=== PATIENT | male | born 1990 | race African-American/Black ===

== ENCOUNTER 2022-02-04 09:26 | Emergency (ER) | payer MEDICAID ==
[~2022-02-04] VITALS: Ht 162.6 cm; Wt 59.0 kg
[2022-02-04 09:41] VITALS: BP 121/76
[2022-02-04] MEDS ORDERED: IBUPROFEN 600MG TABLET PO ONE (10:00)
[2022-02-04] MEDS ORDERED: IBUP-2029 MT (10:55)
== END 2022-02-04 11:09 | disposition home or self-care (01) ==
LOC: ER 09:26
DX: M79.651 Pain in right thigh (principal); Z98.890 Other specified postprocedural states
CPT/HCPCS: 73552; 99283

== ENCOUNTER 2022-12-23 16:37 | Emergency (ER) | payer MEDICAID, OTHER ==
[~2022-12-23] VITALS: Ht 162.6 cm; Wt 59.0 kg
[~2022-12-23 16:37] MED LIST: IBUP-2029 MT
[2022-12-23] MEDS ORDERED: IBUPROFEN 600MG TABLET PO ONE (18:00)
[2022-12-23 18:06] VITALS: BP 131/98
== END 2022-12-23 18:00 | disposition home or self-care (01) ==
LOC: ER 16:37
DX: M79.651 Pain in right thigh (principal); M79.10 Myalgia, unspecified site
CPT/HCPCS: 99282

== ENCOUNTER 2023-07-16 01:31 | Emergency (ER) | payer SELFPAY ==
[~2023-07-16] VITALS: Ht 162.6 cm; Wt 57.0 kg
[2023-07-16 01:47] VITALS: O2SAT 96
[2023-07-16 02:16] LABS: CLARITY URINE CLEAR (CLEAR); COLOR URINE YELLOW (YELLOW); GLUCOSE URINE NEGATIVE (NEGATIVE); KETONES URINE NEGATIVE (NEGATIVE); LEUKOCYTE ESTERASE URINE NEGATIVE (NEGATIVE); NITRITE URINE NEGATIVE (NEGATIVE); OCCULT BLOOD URINE NEGATIVE (NEGATIVE); PROTEIN URINE NEGATIVE (NEGATIVE); SPECIFIC GRAVITY URINE 1.016 (1.005-1.030); UROBILINOGEN URINE 0.2 E.U./dL (0.2-1.0)
[2023-07-16 03:10] LABS: BASOPHILS % 0.7 % (0.0-2.0); HEMOGLOBIN. 14.2 g/dL (14.0-18.0); LYMPHOCYTES % 32.1 % (20.0-50.0); MEAN CORPUSCULAR HEMOGLOBIN 28.5 pg (28.0-32.0); MEAN CORPUSCULAR HGB CONC 33.9 g/dL (31.0-37.0); MEAN PLATELET VOLUME 8.1 fl (7.4-10.4); MONOCYTES % 7.6 % (2.0-8.0); NEUTROPHILS % 55.6 % (40.0-76.0); PLATELET 266 x1000/uL (130-400); RED CELL DISTRIBUTION WIDTH 13.8 % (11.6-14.6); WHITE BLOOD COUNT 9.2 x1000/uL (4.5-11.0)
[2023-07-16] MEDS ORDERED: ACETAMINOPHEN 325MG TABLET PO ONE (03:15)
[2023-07-16 03:22] LABS: PARTIAL THROMBOPLASTIN TIME 30.4 sec (23.4-31.0); PROTHROMBIN TIME 10.9 sec (9.6-11.0)
[2023-07-16 03:30] LABS: ALANINE AMINOTRANSFERASE 19 IU/L (10-49); ALBUMIN 4.2 g/dL (3.2-4.8); ASPARTATE AMINOTRANSFERASE 24 IU/L (<34); BILIRUBIN TOTAL 0.4 mg/dL (0.1-1.0); CALCIUM 9.3 mg/dL (8.7-10.4); CARBON DIOXIDE 29 mEq/L (21-32); CHLORIDE 106 mEq/L (98-107); CREATININE 0.9 mg/dL (0.6-1.3); GLUCOSE 113 mg/dL (70-105); POTASSIUM 3.6 mEq/L (3.5-5.1); PROTEIN TOTAL 7.3 g/dL (6.0-8.3); SODIUM 141 mEq/L (136-145); TROPONIN I HIGH SENSITIVITY 5 ng/L (3.0-53); UREA NITROGEN BLOOD 17 mg/dL (9-23)
[2023-07-16] MEDS ORDERED: IBUP-2029 MT (04:03)
[2023-07-16 04:15] VITALS: BP 118/86; PULSE 76; RESP 16; TEMP 98.2
== END 2023-07-16 04:22 | disposition home or self-care (01) ==
LOC: ER 01:31
DX: R07.89 Other chest pain (principal)
CPT/HCPCS: 36415; 71045; 80053; 81003; 84484; 85025; 93005; 99285

== ENCOUNTER 2024-03-08 22:36 | Emergency (ER) | payer SELFPAY ==
[~2024-03-08] VITALS: Ht 160 cm; Wt 59.0 kg
[2024-03-08 23:20] VITALS: O2SAT 98
[2024-03-09] MEDS ORDERED: CIPHCO EACH EAR (00:28)
[2024-03-09 00:50] VITALS: BP 105/48; PULSE 68; RESP 16; TEMP 99.1
== END 2024-03-09 00:50 | disposition home or self-care (01) ==
LOC: ER 22:36
DX: H60.91 Unspecified otitis externa, right ear (principal)
CPT/HCPCS: 99283